=== PATIENT | male | born 1975 | race African-American/Black ===

== ENCOUNTER 2016-12-02 11:31 | Emergency (ER) | payer SELFPAY | END 2016-12-02 12:13 | disposition home or self-care (01) | LOC: NAV ERS 11:31 | DX: B02.9 Zoster without complications (principal); K21.9 Gastro-esophageal reflux disease without esophagitis | CPT/HCPCS: 99282 ==

== ENCOUNTER 2017-04-10 19:01 | Emergency (ER) | payer SELFPAY ==
[2017-04-10 19:32] LABS: Bilirubin Negative (Negative); Blood, Urine Trace (Negative); Clarity Clear (Clear); Glucose, Urine (Dipstick) Negative (Negative); Leukocyte Negative (Negative); Nitrite Negative (Negative); Protein, Urine (Dipstick) Negative (Neg-Trace); Urobilinogen 0.2 mg/dL (0.2-1.0)
[2017-04-10 19:40] LABS: RBC/HPF 0-3 HPF (0-3); Squamous Epithelial 0-3 HPF (0-3)
== END 2017-04-10 20:10 | disposition home or self-care (01) ==
LOC: NAV ERS 19:01
DX: N39.0 Urinary tract infection, site not specified (principal); K21.9 Gastro-esophageal reflux disease without esophagitis; F17.210 Nicotine dependence, cigarettes, uncomplicated
CPT/HCPCS: 81003; 81015; 87086; 99283

== ENCOUNTER 2017-11-15 18:12 | Emergency (ER) | payer SELFPAY ==
[2017-11-15] MEDS ORDERED: guaiFENesin 100 MG/5 ML UDCUP ONE (18:27)
--- NOTE | 2017-11-15 19:02 | RAD ---
PA AND LATERAL VIEWS CHEST 11/15/17 HISTORY: Cough. FINDINGS: Comparison made with exam of 03/20/14. The heart size is normal. The lungs are expanded without focal areas of consolidation, pneumothorax o r pleural effusions. There is evidence of old granulomatous disease. There are degenerative changes in the spine. IMPRESSION: No radiographic evidence of acute cardiopulmonary process. POS: [facility]
== END 2017-11-15 18:53 | disposition home or self-care (01) ==
LOC: NAV ERS 18:12
DX: J20.9 Acute bronchitis, unspecified (principal); K21.9 Gastro-esophageal reflux disease without esophagitis; F17.290 Nicotine dependence, other tobacco product, uncomplicated; Z79.899 Other long term (current) drug therapy
CPT/HCPCS: 71046

== ENCOUNTER 2020-09-26 07:36 | Emergency (ER) | payer SELFPAY | END 2020-09-26 08:14 | disposition home or self-care (01) | LOC: NAV ERS 07:36 | DX: K64.4 Residual hemorrhoidal skin tags (principal); K21.9 Gastro-esophageal reflux disease without esophagitis; F17.200 Nicotine dependence, unspecified, uncomplicated; Z79.899 Other long term (current) drug therapy | CPT/HCPCS: 99283 ==

== ENCOUNTER 2021-05-02 17:46 | Emergency (ER) | payer BC, SELFPAY ==
[2021-05-02] MEDS ORDERED: Ondansetron ODT 4 MG TAB ONE (18:22)
== END 2021-05-02 18:48 | disposition home or self-care (01) ==
LOC: NAV ERS 17:46
DX: R11.0 Nausea (principal); T50.B95A Adverse effect of other viral vaccines, initial encounter; K21.9 Gastro-esophageal reflux disease without esophagitis; F17.200 Nicotine dependence, unspecified, uncomplicated
CPT/HCPCS: 93005; Q0162

== ENCOUNTER 2021-12-13 10:48 | Emergency (ER) | payer BC, SELFPAY ==
[2021-12-13 11:50] LABS: Bilirubin Negative (Negative); Blood, Urine Negative (Negative); Clarity Clear (Clear); Glucose, Urine (Dipstick) Negative (Negative); Ketone, Urine Negative (Negative); Leukocyte Negative (Negative); Nitrite Negative (Negative); Protein, Urine (Dipstick) Negative (Neg-Trace); Specific Gravity, Urine 1.025 (1.005-1.030); Urobilinogen 0.2 mg/dL (Less than 2)
[2021-12-13 11:56] LABS: #Lymphocytes 1.6 thou/uL (1.20-3.40); #Monocytes 0.4 thou/uL (0.11-0.59); #Neutrophils 3.6 thou/uL (1.40-6.50); %Basophils 0.6 % (0.0-1.0); %Eosinophils 0.1 % (0.0-10.0); %Lymphocytes 28.6 % (21.0-51.0); %Monocytes 6.7 % (0.0-10.0); %Neutrophils 63.9 % (42.0-75.0); Hemoglobin 12.7 g/dL (14.0-18.0); Mean Corpuscular HGB CONC 30.3 g/dL (32.0-36.0); Mean Corpuscular Hemoglobin 27.2 pg (27.0-31.0); Mean Corpuscular Volume 89.8 fL (78.0-98.0); Mean Platelet Volume 8.3 fL (7.4-10.4); Platelet Count 229 thou/uL (130-400); RBC Distribution Width 13.2 % (11.5-14.5); Red Blood Cell (RBC) Count 4.68 mill/uL (4.70-6.10); White Blood Cell (WBC) Count 5.6 thou/uL (4.8-10.8)
[2021-12-13 12:08] LABS: ALT (SGPT) 15 U/L (8-55); AST (SGOT) 19 U/L (5-34); Albumin 4.5 g/dL (3.5-5.0); Alkaline Phosphatase 62 U/L (40-110); Anion Gap 15 mmol/L (10-20); BUN (Urea Nitrogen) 12 mg/dL (8.9-20.6); Bilirubin, Total 0.3 mg/dL (0.2-1.2); Calc. Creatinine Clearance 0 mL/min (70-130); Calcium 9.1 mg/dL (7.8-10.44); Carbon Dioxide 23 mmol/L (22-29); Chloride 99 mmol/L (98-107); Globulin 2.9 g/dL (2.4-3.5); Glucose 92 mg/dL (70-105); Lipase 20 U/L (8-78); Potassium 4.1 mmol/L (3.5-5.1); Protein, Total 7.4 g/dL (6.0-8.3); Sodium 133 mmol/L (136-145)
== END 2021-12-13 12:46 | disposition home or self-care (01) ==
LOC: NAV ERS 10:48
DX: R10.32 Left lower quadrant pain (principal); K64.8 Other hemorrhoids; K21.9 Gastro-esophageal reflux disease without esophagitis; F17.290 Nicotine dependence, other tobacco product, uncomplicated
CPT/HCPCS: 80053; 81003; 82274; 83690; 85025; 99284

== ENCOUNTER 2025-09-05 13:33 | Emergency (ER) | payer BC ==
[2025-09-05] MEDS ORDERED: Ketorolac Tromethamine 30 MG (1 mL) VIAL ONE (14:44)
== END 2025-09-05 16:00 | disposition home or self-care (01) ==
LOC: NAV ERS 13:33
DX: S50.12XA Contusion of left forearm, initial encounter (principal); S50.11XA Contusion of right forearm, initial encounter; F17.220 Nicotine dependence, chewing tobacco, uncomplicated; Z79.899 Other long term (current) drug therapy; X58.XXXA Exposure to other specified factors, initial encounter
CPT/HCPCS: 96372; 99283; J1885